=== PATIENT | female | born 1960 | race Caucasian/White ===

== ENCOUNTER 2017-01-27 17:44 | Emergency (ER) | payer OTHER ==
[~2017-01-27] VITALS: Ht 167.6 cm; Wt 79.5 kg
[~2017-01-27 17:44] MED LIST: ALPR0.25 PO; ALPR0.2552 PO; ASPI-378 PO; BANO TOP; BUPR-97 PO; CLON1TAB PO; CLON2TAB PO; DES50 PO; ESTR0.5T PO; GABA600T2 PO; HYDR1TAB91 PO; LISI1TAB3 PO; METH750T PO; OMPR20CCR PO; [UNRECOGNIZED DRUG - CODE] PO
[2017-01-27 17:48] VITALS: BP 135/84; PULSE 70; RESP 12; O2SAT 99
--- NOTE | 2017-01-27 18:16 | ED.REPORT ---
HPI-Extremity Problem Upper Date of Service Jan 27, 2017 ED Provider: Enmanuel García DO Patient is a 56 year old female with no pertinent history who presents to the ED due to a thumb laceration. She states that she was falling backwards and grabbed the edge of metal counter while falling back. The patient reports that she has numbness to the tip of her thumb. She denies alcohol use. Patient is not currently on anticoagulants. Nursing Notes Stated Complaint: SLICED RIGHT THUMB Chief Complaint: Extremity Trauma Nursing Notes Reviewed: Yes Allergies: Coded Allergies: venlafaxine (Verified Allergy, Severe, hallucinations., 01/27/17) Sulfa (Sulfonamide Antibiotics) (Verified Allergy, Unknown, 01/27/17) tetracycline (Verified Allergy, Unknown, 01/27/17) Scheduled Aspirin-Expunged Drug, Do Not Renew! (Aspirin-Expunged Drug, Do Not Renew!) 81 Mg Tablet.dr 81 MG PO DAILY Bupropion-Expunged Drug, Do Not Renew! (Bupropion XL-Expunged Drug, Do Not Renew !) 150 Mg Tab.sr.24h 300 MG PO DAILY Bupropion-Expunged Drug, Do Not Renew! (Bupropion XL-Expunged Drug, Do Not Renew !) 300 Mg Tab.er.24 300 MG PO DAILY ClonazePAM-Expunged Drug, Do Not Renew! (ClonazePAM-Expunged Drug, Do Not Renew! ) 1 Mg Tablet 1 MG PO AM ClonazePAM-Expunged Drug, Do Not Renew! (ClonazePAM-Expunged Drug, Do Not Renew! ) 2 Mg Tablet 2 MG PO HS Estradiol-Expunged Drug, Do Not Renew! (Estrace-Expunged Drug, Do Not Renew!) 0.5 Mg Tablet 0.5 MG PO HS Gabapentin-Expunged Drug, Do Not Renew! (Gabapentin-Expunged Drug, Do Not Renew! ) 600 Mg Tablet 600 MG PO HS 1-2 tablets at bedtime Lisin/HCTZ-Expunged, Do Not Renew! (Lisin/HCTZ 10/12.5-Expunged, Do Not Renew!) 1 Tab Tablet 2 TAB PO DAILY Methocarbamol-Expunged Drug, Do Not Renew! (Jekchdp-738-Ddgjmrcc Drug, Do Not Renew!) 750 Mg Tablet 750 MG PO BID Mupirocin-Expunged Drug, Do Not Renew! (Bactroban-Expunged Drug, Do Not Renew!) 4 Applic/Gm Oint 1 APPL TOP TID APPLY TO AFFECTED AREA for 7 days. Repeat in 3 weeks. Omeprazole-Expunged Drug, Do Not Renew! (Omeprazole-Expunged Drug, Do Not Renew! ) 20 Mg Capsule.dr 40 MG PO DAILY Scheduled PRN Alprazolam-Expunged Drug, Do Not Renew! (Alprazolam-Expunged Drug, Do Not Renew! ) 0.25 Mg Tablet 0.12 MG PO TID PRN PRN Alprazolam-Expunged Drug, Do Not Renew! (Alprazolam-Expunged Drug, Do Not Renew! ) 0.25 Mg Tablet 0.125 MG PO TID PRN PRN For Anxiety Hydrocod/APAP-Expunged, Do Not Renew! (Hydrocod/APAP-Expunged, Do Not Renew!) 1 Each Tablet 1 TAB PO TID PRN PRN For mild-moderate pain. Trazodone-Expunged Drug, Do Not Renew! (Trazodone-Expunged Drug, Do Not Renew!) 50 Mg Tab 50 MG PO HSPMR PRN PRN General Time Seen by MD: 18:15 Chief Complaint Finger injury right 1 Hx Obtained From: Patient Arrived By: Walk-in Onset Occurred: Just prior to arrival Symptom Duration: Since onset Caused by: Accidental Location: : Finger right 1 Quality: Painful Immunizations: Tetanus up to date Similar Sx Previous: No Past Medical History Past Medical History Reports: Hypertension Smoking History Unknown if Ever Smoker Social History Other Social History: Good social support Ambulatory Status Independent Review of Systems Constitutional: Denies: Chills, Fever Musculoskeletal: Reports: Extremity pain (thumb) Skin: Denies Itching, Denies Rash Neurologic: Reports: Numbness Complete sys rev & neg: except as marked. Respiratory: Denies: Non-productive cough, Shortness of breath Physical Exam Initial Vital Signs Vital Signs (First) Date Time Temp Pulse Resp B/P Pulse Ox O2 Delivery O2 Flow Rate FiO2 01/27/17 17:48 36.9 70 12 135/84 99 Room Air Initial VS: Reviewed General/Constitutional: Awake, Alert, No acute distress Respiratory / Chest: Atraumatic, Breath sounds NL, Breath sounds = bilat, No respiratory distress Cardiovascular: Heart rate NL, Regular rhythm, Heart sounds NL HAND: 3cm laceration to the base of the proximal phalanx good flexion and extension decreased sensation of the volar aspect of the right thumb Skin: Atraumatic, Color NL, No rash, Warm, Dry Neurologic: Oriented X3, Speech NL, No motor deficits, No sensory deficits Head / Eyes: Atraumatic, Normocephalic, PERRL, EOMI Psychiatric: Affect NL, Mood NL Procedures Laceration Management Time: 19:42 Procedure Performed by: ED physician Consent / Setup / Site Prep: Consent from patient, Time-out performed, Hand hygiene observed Wound Length: 3 cm Local Anesthesia: Lidocaine 1% Digital Block: No Digit Involved: Thumb right Wound Preparation: Betadine Irrigation: Copious Repair Skin: Nylon # Sutures - Skin: 6 Suture Technique: Simple Post-Procedure / Complications: Antibiotic oint applied, Dressing applied, No complications, Condition improved, Tolerated procedure well, Patient stable Re-Eval/Medical Decision Re-Evaluation/Progress #1: Time of Eval: 19:39 Re-Evaluation/Progress Note: Discussed plan for laceration management. Patient understands and agrees to plan. All questions were addressed. Re-Evaluation/Progress #2: Time of Eval: 20:02 Re-Evaluation/Progress Note: Discussed plan for follow up and discharge. Patient understands and agrees to plan. All questions were addressed. Counseled Regarding: Diagnosis, Need for follow-up, When/why to return to ED Discharge & Departure Impression: Primary Impression: Laceration Disposition: Home Discharge Condition All VS Reviewed: Yes Condition: Stable Patient Instructions: Care For Your Stitches (ED), Laceration (ED) Additional Instructions: Keep the wound clean and dry. You can take 1-2 Butler every 6 hours as needed for pain. Do not drink alcohol or drive while taking the pain medication. Do not combine with Acetaminophen. Take the antibiotic Keflex 3x a day for 5 days. Have the wound checked in 48 hours. The sutures should be removed in 7-10 days. You can return to the ED to have this done or follow up with your primary care physician. Follow up with the attached ortho doctor later this week about further evaluation of the thumb and nerves. Return to the emergency department if you develop any new or concerning symptoms such as signs of infection including spreading redness, pus drainage, swelling or increasing pain. Referrals: Dimitry Sloan MD (PCP) Eliseo Inman MD Attestation Portions of this note were transcribed by Bhavna Garcia. I, Dr. García personally performed the history, physical exam and medical decision-making; I reviewed and confirmed the accuracy of the information in the transcribed note. Signed by: Valery Nielson, 01/27/17 and 1832. copies to: Dimitry Sloan MD; Eliseo Inman MD, Todd P DO Jan 27, 2017 18:16 Mayuri Garcia Jan 27, 2017 18:46
[2017-01-27] MEDS ORDERED: HYDROcodone-APAP 5-325 mg Tablet PO ONE (18:45)
[2017-01-27] MEDS ORDERED: Lidocaine 1% 50 mL Inj NERVEBLOCK ONE (18:45)
[2017-01-27 20:47] VITALS: BP 123/87; PULSE 67; O2SAT 98
== END 2017-01-27 20:48 | disposition home or self-care (01) ==
LOC: SED 17:44
DX: S61.011A Laceration without foreign body of right thumb without damage to nail, initial encounter (principal); W26.8XXA Contact with other sharp object(s), not elsewhere classified, initial encounter; Y93.89 Activity, other specified; Y92.019 Unspecified place in single-family (private) house as the place of occurrence of the external cause; Y99.8 Other external cause status; I10 Essential (primary) hypertension; Z88.1 Allergy status to other antibiotic agents; Z88.2 Allergy status to sulfonamides; Z88.8 Allergy status to other drugs, medicaments and biological substances